=== PATIENT | male | born 1955 | race African-American/Black ===

== ENCOUNTER 2016-12-06 15:48 | Emergency (ER) | payer OTHER ==
[2015-09-13 23:47] VITALS: BP 151/78
[2016-12-06] MEDS ORDERED: DEXTROSE 50% 25 GM / 50ML DISP.SYRIN. IV ONE ×2 (16:05→18:00)
--- NOTE | 2016-12-06 16:20 | PHYS DOC ---
Past Medical History Past Medical History: Diabetes-Type II, Hypertension, Other Additional Past Medical Histor: "bad heart" Past Surgical History: Pacemaker Alcohol Use: None Drug Use: None Adult General HPI HPI Patient is a 61 year old male who presents with cardiac arrest. Per report patient was at home with family when he collapsed and became unresponsive. EMS reports that patient was in Vfib arrest on their arrival; they shocked him once and performed CPR. In addition, patient had FSBS of 20 and was given amp of D50. Patient remains unresponsive on arrival to ED. Per family, he has h/o DM and HTN. Review of Systems Review of Systems Unable to obtain ROS as patient is unresponsive Current Medications Current Medications Current Medications Medications (Trade) Dose Ordered Sig/Roselyn Start Time Stop Time Status Last Admin Dose Admin Dextrose (Dextrose 50%-Water Syringe) 25 gm STK-MED ONCE 12/06/16 16:05 12/06/16 16:06 DC Allergies Allergies Allergies Coded Allergies Type Severity Reaction Last Updated Verified No Known Drug Allergies 11/30/14 No Physical Exam Physical Exam Constitutional: Well developed, well nourished, unresponsive, CPR in progress HENT: Normocephalic, atraumatic, bilateral external ears normal Eyes: Pupils 4mm and unreactive, conjunctiva normal, no discharge Neck: Normal range of motion, no stridor Cardiovascular: No central pulses Lungs & Thorax: Bilateral breath sounds clear to auscultation Abdomen: Bowel sounds normal, soft, non-distended, no TTP Skin: Cool, dry, no erythema, no rash Extremities: No obvious deformity, no edema Neurologic: GCS 3 Current Patient Data Lab Values Laboratory Tests Test 12/06/16 15:54 12/06/16 16:05 Glucose (Fingerstick) 10mg/dL (70-99) *L 69mg/dL (70-99) L EKG EKG [] Radiology/Procedures Radiology/Procedures [] Course & Med Decision Making Course & Med Decision Making Pertinent Labs and Imaging studies reviewed. (See chart for details) Patient is 61 year old male who presents after cardiac arrest. Remains unresponsive with CPR in progress on arrival. PEA noted on monitor. CPR continued and ACLS algorithm followed. Finger stick in ED low, additional amp of D50 given and D10 gtt started; this subsequently improved to 69 on later fingerstick. Continued coding patient for ~35 minutes (see code sheet for exact timing). I-gel airway exchanged for ET tube for definitive airway. I used ultrasound to visualize patient's heart; no cardiac motion appreciated. Briefly update family on status during code. Time of declared at 1612. Family updated and given condolences. Unable to ascertain patient's PCP (at [facility]? ). 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 Therefore, I discussed with Dr. Ang who will sign certificate. Critical care time: 30 minutes critical care time spent with patient. This does not include time spent on procedures. Dragon Disclaimer Dragon Disclaimer This electronic medical record was generated, in whole or in part, using a voice recognition dictation system. PROCEDURE Procedure Indication: Respiratory failure Consent: Unable to give consent due to emergent nature. Medications Used: see nursing note Procedure: The patient was placed in the appropriate position. Intubation was performed using glidescope and 7.0 endotracheal tube after initial attempt with 7.5 ET tube failed. Tube secured at 25cm at lip. Initial confirmation of placement included bilateral breath sounds, tube fogging, adequate chest rise, adequate pulse oximetry reading. Complications: Unable to pass 7.5 ET tube, 7.0 passed successfully Departure Departure Impression: Primary Impression: Cardiac arrest Disposition: 20 Condition: Referrals: NO PCP (PCP) ELSI ROBLES MD Dec 06, 2016 16:20
[2016-12-06] MEDS ORDERED: SODIUM BICARB ADULT 8.4% 50 MEQ/50 ML DISP.SYRIN. ONE (18:00)
[2016-12-06] MEDS ORDERED: EPINEPHRINE 30 MG/30 ML VIAL. ONE (18:00)
[2016-12-06] MEDS ORDERED: EPINEPHRINE 1 MG/10 ML DISP.SYRIN. ONE (18:00)
== END 2016-12-06 19:54 | disposition expired ==
LOC: ER 15:48
DX: I46.9 Cardiac arrest, cause unspecified (principal); E11.9 Type 2 diabetes mellitus without complications; I10 Essential (primary) hypertension; Z95.0 Presence of cardiac pacemaker
CPT/HCPCS: 31500; 82947; 92950; 99291; J0171; J7042